=== PATIENT | female | born 1965 | race Native Hawaiian/Other Pacific Islander ===

== ENCOUNTER 2019-09-06 06:54 | Emergency (ER) | payer BC, OTHER ==
[~2019-09-06] VITALS: Ht 157.5 cm; Wt 61.2 kg
[2019-09-06 06:54] VITALS: TEMP 98.6
[2019-09-06 07:38] LABS: PLATELET COUNT 166 K/uL (152-353)
[2019-09-06 07:43] LABS: POTASSIUM 4.2 mmol/L (3.6-5.2); SODIUM 143 mmol/L (136-145)
[2019-09-06 10:12] VITALS: BP 134/58
== END 2019-09-06 10:12 | disposition home or self-care (01) ==
LOC: ED 06:54
PROVIDERS: Emergency Medicine
DX: R07.89 Other chest pain (principal)
CPT/HCPCS: 80053; 81000; 82150; 82550; 83690; 83880; 84484; 85027; 93005; 96374; 96375; 99284; J2270; J2405